=== PATIENT | male | born 1980 | race Caucasian/White ===

== ENCOUNTER 2016-07-25 21:41 | Emergency (ER) | payer SELFPAY ==
[~2016-07-25] VITALS: Ht 182.9 cm; Wt 88.0 kg
[~2016-07-25 21:41] MED LIST: CLIN1CAP5 PO
[2016-07-25 21:43] VITALS: BP 133/91; PULSE 108; RESP 16; TEMP 98.2; O2SAT 98
--- NOTE | 2016-07-25 22:29 | RADRPT ---
EXAM DATE/TIME: 07/25/2016 22:16 [place] COMPARISON: No previous studies available for comparison. INDICATIONS : Cough MEDICAL HISTORY : None. SURGICAL HISTORY : None. ENCOUNTER: Initial ACUITY: 3 days PAIN SCORE: 0/10 LOCATION: Bilateral chest FINDINGS: A single view of the chest demonstrates the lungs to be symmetrically aerated without evidence of mas s, infiltrate or effusion. The cardiomediastinal contours are unremarkable. Osseous structures are intact. CONCLUSION: No acute disease. Esau Vogel MD on July 25, 2016 at 22:26 Board Certified Radiologist. This report was verified electronically.
--- NOTE | 2016-07-25 23:25 | PD ---
HPI Chief Complaint: Cold / Flu Symptoms Time Seen by Provider: 23:22 Travel History International Travel<30 days: No Contact w/Intl Traveler<30days: No Traveled to known affect area: No History of Present Illness HPI Patient comes in with a possible sinus infection. Patient states he's been dealing with allergies for years using [id number] medication has not seen a specialist. Patient states over the past several days he's been coughing up green thick sputum and losing his voice. Patient denies a known fevers, nausea , vomiting, shortness breath, abdominal pain, or neck pain. Denies anything being better or worse. PFSH Past Medical History Diminished Hearing: No Tetanus Vaccination: < 5 Years Influenza Vaccination: No Past Surgical History Abdominal Surgery: Yes (HERNIA REPAIR) Social History Alcohol Use: No Tobacco Use: No Substance Use: No Allergies-Medications (Allergen,Severity, Reaction): Coded Allergies: No Known Allergies (Unverified , 07/25/16) Reported Meds & Prescriptions Reported Meds & Active Scripts Active Singulair (Montelukast Sodium) 10 Mg Tab 10 Mg PO HS Amoxicillin 875 Mg Tab 875 Mg PO BID 10 Days Review of Systems Except as stated in HPI: all other systems reviewed are Neg Physical Exam Narrative GENERAL: Well-developed, well nourished, in no acute distress, and non-ill appearing. SKIN: Warm and dry. HEAD: Atraumatic. Normocephalic. EYES: Pupils equal and round. EOMI. No scleral icterus. No injection or drainage. ENT: No nasal bleeding or discharge. Mucous membranes pink and moist. Tympanic membranes mildly erythematous bilaterally. Posterior pharynx moderately erythematous with scant exudate noted. Uvula is midline. No tenderness to sinuses to palpation. NECK: Trachea midline. Supple. No nuclear rigidity. CARDIOVASCULAR: Regular rate and rhythm. No murmur appreciated. RESPIRATORY: No accessory muscle use. No respiratory distress. Clear to auscultation. Breath sounds equal bilaterally. MUSCULOSKELETAL: No obvious deformities. No clubbing. No cyanosis. No edema. Full range of motion. NEUROLOGICAL: Awake and alert. No obvious cranial nerve deficits. Motor grossly within normal limits. Normal speech. PSYCHIATRIC: Appropriate mood and affect; insight and judgment normal. Data Data Last Documented VS Vital Signs Date Time Temp Pulse Resp B/P Pulse Ox O2 Delivery O2 Flow Rate FiO2 07/25/16 22:27 18 99 Room Air 07/25/16 21:43 98.2 108 133/91 Orders Chest, Single Ap (07/25/16 ) MDM Medical Decision Making Medical Screen Exam Complete: Yes Emergency Medical Condition: Yes Differential Diagnosis Allergies, sinusitis, pneumonia, strep pharyngitis, laryngitis, other Narrative Course Patient looks great, non-ill appearing. The patient is tolerating fluids and is well hydrated. Appears acute sinusitis. No clinical evidence by history or evaluation to suspect meningitis and/or sepsis. There was no evidence to suggest deep abscess or cavernous sinus involvement. I discussed with the patient, diagnosis, plan of care, medications and to follow up with the patient s primary physician. The patient was instructed to return if the worsens in anyway, especially if not tolerating fluids, increased sinus pain or swelling, worsening headache, persistent fever, difficulty swallowing or breathing, or as needed. The patient agreed with plan. Patient in no obvious distress upon re-evaluation. Patient was asked if they wanted to speak to my attending, which the patient did not wish to do at this time. Any questions/concerns in reference to patient diagnosis/condition discussed and clarified prior to patient's discharge. Reinforced sheer importance of close follow up with patient's primary physician or primary care clinic. Instructed patient to return to ED immediately, if symptoms return/ worsen. Pt showed understanding of above instructions. Further instructions and recommendations were detailed in discharge paperwork. Pt ambulated without difficulty out of ED at discharge. Diagnosis Primary Impression: Sinusitis Qualified Code: J32.9 - Sinusitis, unspecified chronicity, unspecified location Patient Instructions: General Instructions, Sinusitis (ED) Additional Instructions: Follow-up with your primary care physician and/or clinical nurse reviewer for definitive allergy testing as soon as possible. Take all medication as prescribed. Drink plenty of non-caffeinated and nonalcoholic fluids. Use [id number] allergy medicine in conjunction with medication prescribed today for symptomatic relief. Follow instructions on the packaging. Return to the emergency department if symptoms get worse. Med/Other Pt SpecificInfo: Prescription(s) given Scripts Montelukast (Singulair)10 Mg Tab10 Mg PO HS #30 TAB Ref 0 Prov:Shree Razo MD 07/25/16 Amoxicillin 875 Mg [id number] Mg PO BID 10 Days Ref 0 Prov:Shree Razo MD 07/25/16 Disposition: 01 DISCHARGE HOME Condition: Stable Vitaliy James Jul 25, 2016 23:25
[2016-07-25] MEDS ORDERED: AMOX875T PO (23:26)
[2016-07-25] MEDS ORDERED: MONT10TA2 PO (23:26)
== END 2016-07-25 23:35 | disposition home or self-care (01) ==
LOC: NEPB 21:41
DX: J32.9 Chronic sinusitis, unspecified (principal)
CPT/HCPCS: 71010; 99283